=== PATIENT | male | born 1945 | race Caucasian/White ===

== ENCOUNTER 2024-12-08 11:54 | Day surgery (SDC) | payer MEDICARE ==
[2024-12-04 11:59] LABS: MEAN PLATELET VOLUME 7.3 FL (7.4-10.4); RED CELL DISTRIBUTION WIDTH 12.4 % (11.5-14.5)
[2024-12-04 12:14] LABS: APTT 25 SECONDS (22-32); INR 1.0 INR
[2024-12-04 12:16] LABS: CHOL/HDL RATIO 2.9 (0.00-4.99); CREATININE 0.90 MG/DL (0.60-1.10); LDL CHOLESTEROL 103 MG/DL (50-100); TOTAL CARBON DIOXIDE 27.0 MMOL/L (24-32); eGFR 81 ML/MIN
[2024-12-08] VITALS (7 sets, daily range): BP systolic 103–117; BP diastolic 60–72; PULSE 47–56; RESP 16; TEMP 97.8; O2SAT 91–97
[~2024-12-08] VITALS: Ht 188 cm; Wt 83.5 kg
--- NOTE | 2024-12-08 12:18 | ELECTROCARDIOGRAPH REPORT ---
[facility] Test Date: 2024-12-08 Test Time: 12:08:04 Pat Name: KVNG PADILLA Department: [facility] Patient ID: [id number] Room: Gender: M Mgmt Consultant: NEMESIO : 1945 Requested By: ANGEL MORALES Order Number: [id number] Reading MD: Dr. RENETTA Crabtree Measurements Intervals [place] Rate: 52 P: 70 NE: 190 QRS: 73 QRSD: 96 T: 71 QT: 441 QTc: 411 Interpretive Statements Sinus bradycardia Electronically Signed On 12-08-2024 17:27:[address] RENETTA Crabtree Please click the below link to view image of tracing.
[2024-12-08] MEDS ORDERED: ASCO10004 PO (13:17)
[2024-12-08] MEDS ORDERED: CHOL-35 PO (13:17)
[2024-12-08] MEDS ORDERED: CALC600T14 PO (13:17)
[2024-12-08] MEDS ORDERED: CYAN250010 PO (13:17)
[2024-12-08] MEDS ORDERED: MAGN400T39 PO (13:17)
[2024-12-08] MEDS ORDERED: FISH1CAP15 PO (13:17)
[2024-12-08] MEDS ORDERED: FURO-150 PO (13:17)
[2024-12-08] MEDS ORDERED: ASPI-611 PO (13:17)
[2024-12-08] MEDS ORDERED: PANT40SU2 PO (13:17)
[2024-12-08] MEDS ORDERED: ASCO1TAB47 PO (13:17)
[2024-12-08] MEDS ORDERED: MELA5CAP PO (13:17)
[2024-12-08] MEDS ORDERED: verapamil 2.5 mg/ml inj IV ONE (15:27)
[2024-12-08] MEDS ORDERED: LIDOcaine 1% (10mg/ml) 2ml vial ONE ×2 (15:27→16:16)
[2024-12-08] MEDS ORDERED: midazolam 1 mg/ML 2ml injection ONE (15:28)
[2024-12-08] MEDS ORDERED: heparin 1,000unit/ml 10ml vial 10 ML ONE (15:28)
[2024-12-08] MEDS ORDERED: fentaNYL/PF 50MCG/1 ML 2ML syringe ONE (15:28)
[2024-12-08] MEDS ORDERED: nitroGLYCERIN 500mcg/5mL D5W 5 ML IV ONE (15:30)
[2024-12-08] MEDS ORDERED: LIDOcaine 1% 30ml preserv. free vial ONE (16:16)
[2024-12-08] MEDS ORDERED: OXAZEpam 15mg capsule PO PRN (16:55)
[2024-12-08] MEDS ORDERED: HYDROcodone/acetaminophen 5mg/325mg tablet PO PRN (16:55)
[2024-12-08] MEDS ORDERED: HYDROcodone/acetaminophen 10/325mg tab PO PRN (16:55)
[2024-12-08] MEDS ORDERED: ondansetron/PF 4mg/2ml inj IV PRN (16:55)
--- NOTE | 2024-12-20 13:12 | CARDIOLOGY REPORT ---
DATE OF SERVICE: 12/08/2024 DICTATING PHYSICIAN: Carol Naranjo MD CARDIAC CATHETERIZATION REPORT DATE OF STUDY: 12/08/2024 PROCEDURE: This is a cardiac catheterization report. PROCEDURES PERFORMED: * Left heart catheterization. * Selective coronary angiography. * Left ventriculography. * Conscious sedation monitoring time for 15 minutes. INDICATION: Abnormal stress test. PHYSICIAN: Carol Naranjo MD DESCRIPTION OF PROCEDURE: After informed consent was obtained, the patient was brought to the cardiac research laboratory technician in a fasting state where the patient was prepped and draped in the usual sterile manner. After adequate anesthesia was obtained using 1% lidocaine to the right wrist, a 5-[place] sheath was inserted into the right radial artery using a modified Seldinger technique. Thereafter, using a cocktail of heparin, verapamil and nitroglycerin, the cocktail was given via the sheath in the radial artery to prevent coronary vasospasm and for anticoagulation. Next, using an Ultimate-2 catheter, the catheter was advanced under fluoroscopy guidance into the ascending aorta. The catheter was then manipulated to engage the left coronary system and coronary angiography of the left system was obtained. next, the catheter was disengaged and manipulated to engage the right coronary artery and selective coronary angiography of the right coronary artery was obtained. Thereafter, the catheter was disengaged from the right coronary artery and manipulated to advance into the left ventricle where left ventriculography in the LAMA position was obtained. The catheter was then removed. Hemostasis was obtained using the radial band. HEMODYNAMICS: For the patient's hemodynamics, please refer to the event log. Left ventricular end diastolic pressure was 14 mmHg. FINDINGS: The left main coronary artery is a short caliber vessel free of significant disease. The left anterior descending coronary artery is a medium caliber vessel with a 30-40% mid-vessel stenosis immediately after the takeoff of the diagonal branch of the LAD. The circumflex coronary artery is a medium caliber vessel with mild luminal irregularities. The right coronary artery is a normal caliber dominant vessel with 30-40% mid vessel stenosis. Left ventriculography was not performed. The the aortic valve was crossed. Left ventricular end diastolic pressure is 14 mmHg. IMPRESSION: * A 40% mid LAD stenosis immediately after the takeoff of the diagonal branch. * A 30-40% stenosis of the mid RCA. * Left ventricular end diastolic pressure was 14 mmHg. Carol Naranjo MD TID: [id number] RECEIPT: [id number] LAKESHA/RAZIA
== END 2024-12-08 18:40 | disposition home or self-care (01) ==
LOC: SSTAY O 11:54
PROVIDERS: ATTEND Student in an Organized Health Care Education/Training Program
DX: R94.39 Abnormal result of other cardiovascular function study (principal); I25.10 Atherosclerotic heart disease of native coronary artery without angina pectoris; Z79.01 Long term (current) use of anticoagulants; Z79.899 Other long term (current) drug therapy
CPT/HCPCS: 36415; 80048; 80061; 83695; 85025; 85610; 85730; 93005; 93458; 99152; A6258; A6402; C1769; C1894; J1644; J2003; J2250; J3010; J3490; J7030; Q0163; Q9967; Z7610; 99153